=== PATIENT | female | born 1960 | race Hispanic/Latino ===

== ENCOUNTER 2016-04-10 11:15 | Outpatient (CLI) | payer MEDICARE, MEDICAID ==
[2016-04-10 12:48] LABS: Hemoglobin A1c 8.9 % (4.0-6.0)
== END 2016-04-10 11:16 | disposition home or self-care (01) ==
LOC: NAVSJIPCSP 11:15
PROVIDERS: ATTEND Internal Medicine
DX: E78.5 Hyperlipidemia, unspecified (principal); E11.9 Type 2 diabetes mellitus without complications; Z79.899 Other long term (current) drug therapy
CPT/HCPCS: 36415; 80061; 83036

== ENCOUNTER 2016-08-31 12:45 | Outpatient (CLI) | payer MEDICARE, MEDICAID ==
[2016-08-31 12:50] LABS: Bilirubin Negative (Negative); Blood, Urine Small (Negative); Clarity Clear (Clear); Glucose, Urine (Dipstick) Negative (Negative); Leukocyte Negative (Negative); Nitrite Negative (Negative); Protein, Urine (Dipstick) > or equal to 300 mg/dL (Neg-Trace); Urobilinogen 0.2 mg/dL (0.2-1.0); pH, Urine 6.5 (5.0-9.0)
[2016-08-31 13:14] LABS: #Eosinphils 0.2 thou/uL (0.0-0.7); #Lymphocytes 1.7 thou/uL (1.20-3.40); #Monocytes 0.3 thou/uL (0.11-0.59); #Neutrophils 3.1 thou/uL (1.40-6.50); %Basophils 0.7 % (0.0-1.0); %Eosinophils 3.9 % (0.0-10.0); %Lymphocytes 31.1 % (21.0-51.0); %Monocytes 5.8 % (0.0-10.0); %Neutrophils 58.5 % (42.0-75.0); Hemoglobin 11.9 g/dL (12.0-16.0); Mean Corpuscular HGB CONC 32.2 g/dL (32.0-36.0); Mean Corpuscular Hemoglobin 30.1 pg (27.0-31.0); Mean Corpuscular Volume 93.5 fl (81.0-99.0); Mean Platelet Volume 10.4 fL (7.4-10.4); Platelet Count 123 thou/uL (130-400); Red Blood Cell (RBC) Count 3.96 mill/uL (4.20-5.40); White Blood Cell (WBC) Count 5.3 thou/uL (4.8-10.8)
[2016-08-31 13:27] LABS: Bacteria/HPF None Seen HPF (None Seen); Crystals/HPF RARE SODIUM URATE HPF (Negative); Hemoglobin A1c 9.3 % (4.0-6.0); RBC/HPF 0-3 HPF (0-3); Squamous Epithelial 0-3 HPF (0-3); WBC/HPF None Seen HPF (0-3)
[2016-08-31 13:28] LABS: Albumin 3.5 g/dL (3.5-5.0); Anion Gap 14 mmol/L (10-20); BUN (Urea Nitrogen) 25 mg/dL (9.8-20.1); Bilirubin, Total 0.5 mg/dL (0.2-1.2); Calc. Creatinine Clearance 0 mL/min (70-130); Calcium 9.2 mg/dL (7.8-10.44); Carbon Dioxide 24 mmol/L (22-29); Chloride 108 mmol/L (98-107); Estimated GFR-MDRD 57; Glucose 138 mg/dL (70-105); Potassium 4.7 mmol/L (3.5-5.1); Protein, Total 6.7 g/dL (6.0-8.3); Sodium 141 mmol/L (136-145)
[2016-08-31 13:29] LABS: ALT (SGPT) 19 U/L (8-55); AST (SGOT) 25 U/L (5-34); Alkaline Phosphatase 52 U/L (40-150); Cardiac Risk 2.7 (Less than 4.5); Cholesterol 148 mg/dl (< 200 Desired); Globulin 3.2 g/dL (2.4-3.5); HDL Cholesterol 55 mg/dL (>60 Neg Risk); LDL Cholesterol, Calculated 75 mg/dL; Triglycerides 88 mg/dL (Less than 150)
[2016-09-01 17:43] LABS: Creatinine, Urine 42.39 mg/dL (47-110)
[2016-09-01 17:46] LABS: Microalbumin Urine 166.6 mg/dL (0.5-50.0); Microalbumin/Creat Ratio 3930.2 mg/g (Less than 30)
== END 2016-08-31 12:46 | disposition home or self-care (01) ==
LOC: NAVSJIPCSP 12:45
PROVIDERS: ATTEND Internal Medicine
DX: E78.5 Hyperlipidemia, unspecified (principal); I11.9 Hypertensive heart disease without heart failure; E11.9 Type 2 diabetes mellitus without complications; Z79.899 Other long term (current) drug therapy
CPT/HCPCS: 36415; 80053; 80061; 81003; 81015; 82043; 83036; 85025